=== PATIENT | female | born 1975 | race Caucasian/White ===

== ENCOUNTER 2016-09-16 09:05 | Emergency (ER) | payer SELFPAY ==
[~2016-09-16] VITALS: Ht 165.1 cm; Wt 50.7 kg
[2016-09-16 09:11] VITALS: BP 134/88; PULSE 105; RESP 16; TEMP 98.7; O2SAT 95
[2016-09-16] MEDS ORDERED: CLEO300C2 PO (09:22)
--- NOTE | 2016-09-16 09:23 | PD ---
HPI . Toothache Chief Complaint: Oral / Dental Pain or Problem Time Seen by Provider: 09:17 Travel History International Travel<30 days: No Contact w/Intl Traveler<30days: No Traveled to known affect area: No History of Present Illness HPI Patient presents with a toothache. She has had a broken tooth which has now become painful. She used an qfty-dor-tedxeon dental filling yesterday. Since then, she has had increasing pain and swelling to the right jaw. She denies fever. Pain is exacerbated by eating and drinking. PFSH Past Medical History Hx Anticoagulant Therapy: No Anxiety: Yes Depression: Yes Cancer: No Cardiovascular Problems: No Chemotherapy: No Cerebrovascular Accident: No Diabetes: No Endocrine: No Genitourinary: Yes Immune Disorder: No Musculoskeletal: No Neurologic: Yes Psychiatric: Yes Reproductive: No Respiratory: No Seizures: Yes (from etoh) Past Surgical History Gynecologic Surgery: Yes (Tubal Ligation) Social History Alcohol Use: Yes (in the past, heavy drinking, rarly now) Tobacco Use: No Substance Use: Yes ("Occasional Marijuana use.") Allergies-Medications (Allergen,Severity, Reaction): Coded Allergies: *MDRO Multi-Drug Resistant Organism (Verified Adverse Reaction, Unknown, ) Pt. reports hx MRSA. MRSA PCR Screen negative 05/02/15 and 05/04/15. Cleared by Infection Control. Reported Meds & Prescriptions Reported Meds & Active Scripts Active No Active Prescriptions or Reported Medications Review of Systems Except as stated in HPI: all other systems reviewed are Neg General / Constitutional: No: Fever, Chills HENT: Positive: Dental Difficulties, Other (swelling of the right jaw) Physical Exam Narrative GENERAL: Awake and alert and in no acute distress. Anxious appearing SKIN: Warm and dry. No redness or warmth of the overlying skin. There is some swelling of the right jaw. HEENT: Tooth #29 is broken. Approximately half the tooth is broken off. There is some jvoz-gqy-xjogoxy filling in the tooth. The surrounding gum tissue does not appear red or swollen. CARDIOVASCULAR: Regular rate and rhythm. RESPIRATORY: No accessory muscle use. MUSCULOSKELETAL: No obvious deformities. No edema. NEUROLOGICAL: Awake and alert. No obvious cranial nerve deficits. Motor grossly within normal limits. Normal speech. PSYCHIATRIC: Appropriate mood and affect; insight and judgment normal. Data Data Last Documented VS Vital Signs Date Time Temp Pulse Resp B/P Pulse Ox O2 Delivery O2 Flow Rate FiO2 09/16/16 09:11 98.7 105 16 134/88 95 MDM Medical Decision Making Medical Screen Exam Complete: Yes Emergency Medical Condition: Yes Differential Diagnosis Differential diagnosis of a toothache includes but is not limited to dental caries, dental abscess, gingivitis, drug-seeking behavior. Narrative Course Patient presents with pain and swelling associated with a broken tooth. By exam , she has a dental abscess. She states that she does not want any pain medication. Diagnosis Primary Impression: Dental abscess Additional Instructions: Keep the appointment with your dentist on Saturday Med/Other Pt SpecificInfo: Prescription(s) given Scripts Clindamycin (Cleocin)300 Mg Mbm673 Mg PO Q8H 10 Days Ref 0 Prov:Aneta Field MD 09/16/16 Disposition: 01 DISCHARGE HOME Condition: Stable Aneta Field MD Sep 16, 2016 09:23
== END 2016-09-16 10:15 | disposition home or self-care (01) ==
LOC: PHED 09:05
DX: K04.7 Periapical abscess without sinus (principal)
CPT/HCPCS: 99282

== ENCOUNTER 2017-10-30 09:32 | Emergency (ER) | payer MEDICAID ==
[~2017-10-30] VITALS: Ht 165.1 cm; Wt 57.5 kg
[~2017-10-30 09:32] MED LIST: CLEO300C2 PO
[2017-10-30 09:34] VITALS: BP 142/87; PULSE 112; RESP 18; TEMP 99.5; O2SAT 98
[2017-10-30] MEDS ORDERED: VENTAER INH (10:07)
[2017-10-30] MEDS ORDERED: AZIT250T3 PO (10:07)
--- NOTE | 2017-10-30 10:13 | PD ---
HPI Chief Complaint: Cold / Flu Symptoms Time Seen by Provider: 09:59 Travel History International Travel<30 days: No Contact w/Intl Traveler<30days: No Traveled to known affect area: No History of Present Illness HPI 41-year-old female presents emergency department for evaluation of a productive cough, congestion and chest discomfort. Says the cough and congestion started 2 weeks ago however, says that she has had some chest discomfort that started yesterday. Says that the sputum has been green in color. Patient states that she also lost her voice and has a sore throat and is concerned that this is pneumonia. Patient says that she felt feverish yesterday and today. Says she has been around sick contacts. 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 Patient has not taken any over-the- counter medications for her symptoms because she has a "weak stomach". She has no other complaints today. Denies chronic medical issues medication use. PFSH Past Medical History Hx Anticoagulant Therapy: No Bipolar Disorder: Yes Anxiety: Yes Depression: Yes Cancer: No Cardiovascular Problems: No Chemotherapy: No Cerebrovascular Accident: No Diabetes: No Diminished Hearing: No Endocrine: No Gastrointestinal Disorders: Yes Genitourinary: Yes Hepatitis: Yes (B) Immune Disorder: No Medical other: Yes (MDRO) Musculoskeletal: No Neurologic: Yes Psychiatric: Yes Reproductive: No Respiratory: No Seizures: Yes (from etoh) Influenza Vaccination: No ?: Not LMP: 09/2017 Tubal Ligation: Yes Past Surgical History Gynecologic Surgery: Yes (Tubal Ligation) Other Surgery: Yes Social History Alcohol Use: Yes (in the past, heavy drinking, rarely now) Tobacco Use: Yes (07/17 ppd) Substance Use: Yes (marijuana daily; last used 09/16/16) Allergies-Medications (Allergen,Severity, Reaction): Coded Allergies: No Known Allergies (Unverified , 10/30/17) Reported Meds & Prescriptions Reported Meds & Active Scripts Active Ventolin Hfa 18 GM Inh (Albuterol Sulfate) 90 Mcg/Act Aer 2 Puff INH Q4-6H PRN Azithromycin 250 Mg Tab 250 Mg PO DIRECTED Take 2 tabs (500 mg) on day 1 then 1 tab daily x 4 days. Review of Systems Except as stated in HPI: all other systems reviewed are Neg Physical Exam Narrative GENERAL: Well-nourished, well-developed patient, hoarse voice SKIN: Focused skin assessment warm/dry. HEAD: Normocephalic. EYES: No scleral icterus. No injection or drainage. NECK: Supple, trachea midline. No JVD or lymphadenopathy. CARDIOVASCULAR: Regular rate and rhythm without murmurs, gallops, or rubs. RESPIRATORY: Breath sounds equal bilaterally. No accessory muscle use. GASTROINTESTINAL: Abdomen soft, non-tender, nondistended. MUSCULOSKELETAL: No cyanosis, or edema. BACK: Nontender without obvious deformity. No CVA tenderness. Data Data Last Documented VS Vital Signs Date Time Temp Pulse Resp B/P (MAP) Pulse Ox O2 Delivery O2 Flow Rate FiO2 10/30/17 09:44 Room Air 10/30/17 09:34 99.5 112 18 142/87 (105) 98 MDM Medical Decision Making Medical Screen Exam Complete: Yes Emergency Medical Condition: Yes Differential Diagnosis Acute bronchitis, pneumonia, chemical pneumonitis Narrative Course 41-year-old female presents emergency department for evaluation of a productive cough, congestion and chest discomfort. Says the cough and congestion started 2 weeks ago however, says that she has had some chest discomfort that started yesterday. Says that the sputum has been green in color. Patient states that she also lost her voice and has a sore throat and is concerned that this is pneumonia. Patient says that she felt feverish yesterday and today. Says she has been around sick contacts. 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 Patient has not taken any over-the- counter medications for her symptoms because she has a "weak stomach". She has no other complaints today. Denies chronic medical issues medication use. Vital signs stable. Physical exam findings essentially unremarkable except for a hoarse voice. Lungs clear to auscultation. No chest wall tenderness. Because of the duration of her symptoms and exposure to chemicals, will prescribe an antibiotic and inhaler. Patient does appear well otherwise. She is advised to follow-up with her primary care physician. Return for worsening or persistent symptoms. Diagnosis Primary Impression: Bronchitis Referrals: Primary Care Physician Additional Instructions: You may use a drop of honey and lemon in a cup of warm water to soothe your cough. (If greater than 1 year old) Ensure good hydration and a nutritious diet. Note that viral infections may last for several weeks. Follow up with your primary physician within 2-3 days. Return to the ED for worsening or persistent symptoms. Use medications as prescribed. Scripts Albuterol 18 GM Inh (Ventolin Hfa 18 GM Inh) 90 Mcg/Act Aer 2 PUFF INH Q4-6H Y for SHORTNESS OF BREATH, #1 INHALER 0 Refills Prov: Terrence Hensley MD 10/30/17 Azithromycin (Azithromycin) 250 Mg Tab 250 MG PO DIRECTED for Infection, #6 TAB 0 Refills Take 2 tabs (500 mg) on day 1 then 1 tab daily x 4 days. Prov: Terrence Hensley MD 10/30/17 Disposition: 01 DISCHARGE HOME Condition: Stable Marie Coyle Oct 30, 2017 10:13
== END 2017-10-30 10:21 | disposition home or self-care (01) ==
LOC: PHEFT 09:32
DX: J40 Bronchitis, not specified as acute or chronic (principal); F31.9 Bipolar disorder, unspecified; F41.9 Anxiety disorder, unspecified; F17.200 Nicotine dependence, unspecified, uncomplicated; F12.90 Cannabis use, unspecified, uncomplicated; Z79.51 Long term (current) use of inhaled steroids; Z86.19 Personal history of other infectious and parasitic diseases; Z86.69 Personal history of other diseases of the nervous system and sense organs
CPT/HCPCS: 99283